=== PATIENT | female | born 1990 | race Caucasian/White ===

== ENCOUNTER → 2022-02-15 08:01 | Outpatient (CLI) | payer OTHER, SELFPAY ==
[2022-02-15 10:57] LABS: SARS-CoV-2 RNA PCR Negative
== END ==
PROVIDERS: Visit Provider Surgery
DX: R68.89 Other general symptoms and signs (principal); Z20.822 Contact with and (suspected) exposure to COVID-19
CPT/HCPCS: C9803; U0003; U0005